=== PATIENT | female | born 1995 | race Caucasian/White ===

== ENCOUNTER 2017-02-27 20:15 | Emergency (ER) | payer OTHER ==
[2017-02-27] MEDS ORDERED: ONDANSETRON *ODT* 4 MG TABLET SL ONE (21:29)
--- NOTE | 2017-02-27 21:29 | PDOC ---
Rapid Medical Evaluation Chief Complaint: Pain Time Seen by Provider: 02/27/17 21:26 Medical Evaluation: 02/27/17 21:27 The patient presents with a chief complaint of: Vomiting and abdominal pain, sister with same. I have performed a brief in-person evaluation of this patient. Pertinent physical exam findings: vss, Generalized abdominal pain, no rebound. Lungs clear. RRR I have ordered the following: Urinalysis, urine preg, urine cul. Zofran 4 mg. The patient will proceed to the ED for further evaluation. Discharge Disposition - Diagnosis Vomiting Qualifiers: Vomiting type: unspecified Vomiting Intractability: intractable Nausea presence : with nausea Qualified Code(s): R11.2 - Nausea with vomiting, unspecified - Referrals - Patient Instructions - Post Discharge Activity
[2017-02-27 21:30] VITALS: BP 107/66; PULSE 86; TEMP 99.3; BMI 28.3
[2017-02-27 22:00] LABS: HCG,QUALITATIVE URINE NEGATIVE
[2017-02-27 22:03] LABS: URINE APPEARANCE CLEAR; URINE BILIRUBIN NEGATIVE (NEGATIVE); URINE BLOOD NEGATIVE (NEGATIVE); URINE COLOR LTYELLOW; URINE GLUCOSE (UA) NEGATIVE (NEGATIVE); URINE KETONE TRACE (NEGATIVE); URINE LEUK ESTERASE NEGATIVE (NEGATIVE); URINE NITRITE NEGATIVE (NEGATIVE); URINE PROTEIN NEGATIVE (NEGATIVE); URINE UROBILINOGEN NEGATIVE mg/dL (0.2-1.0)
== END 2017-02-27 23:57 | disposition left against medical advice (07) ==
LOC: JER 20:15
DX: R11.2 Nausea with vomiting, unspecified (principal)
CPT/HCPCS: 81003; 84703; 87086; 99281-25